=== PATIENT | male | born 1955 | race African-American/Black ===

== ENCOUNTER 2018-01-17 20:08 | Outpatient (CLI) | END 2018-01-17 20:09 | disposition left against medical advice (07) | LOC: AMBL 20:08 | PROVIDERS: ATTEND Family Medicine | DX: E16.2 Hypoglycemia, unspecified (principal); R40.2411 Glasgow coma scale score 13-15, in the field [EMT or ambulance]; R53.1 Weakness ==

== ENCOUNTER 2018-06-21 05:03 | Outpatient (CLI) | END 2018-06-21 05:20 | disposition short-term general hospital (02) | LOC: AMBL 05:03 | PROVIDERS: ATTEND Family Medicine | DX: R55 Syncope and collapse (principal); E11.65 Type 2 diabetes mellitus with hyperglycemia; N17.9 Acute kidney failure, unspecified; Z99.2 Dependence on renal dialysis; I10 Essential (primary) hypertension; R53.1 Weakness; R00.1 Bradycardia, unspecified; Z79.899 Other long term (current) drug therapy ==